=== PATIENT | male | born 1990 | race African-American/Black ===

== ENCOUNTER 2019-04-05 18:56 | Emergency (ER) | payer MEDICAID ==
[~2019-04-05] VITALS: Ht 177.8 cm; Wt 93.4 kg
[2019-04-06 01:18] VITALS: BP 135/97
[2019-04-06] MEDS ORDERED: LIDOCAINE 1% HCL (LOCAL ANESTH.) INJ 20ML MDV IJ ONE (01:30)
[2019-04-06] MEDS ORDERED: BACITRACIN TOP OINT 1 UD PKG TOP ONE (01:30)
[2019-04-06] MEDS ORDERED: TETANUS-DIPTH-ACEL PERTUSSIS 0.5ML SYRG IM ONE (03:00)
[2019-04-06] MEDS ORDERED: cefTRIAXone SOD 1,000 MG VL IM ONE (03:00)
[2019-04-06] MEDS ORDERED: ACETAMINOPHEN/CODEINE#3 (300/30mg) TAB PO ONE (03:15)
== END 2019-04-06 03:30 | disposition home or self-care (01) ==
LOC: ER 19:00
DX: S61.411A Laceration without foreign body of right hand, initial encounter (principal); S71.132A Puncture wound without foreign body, left thigh, initial encounter; K21.9 Gastro-esophageal reflux disease without esophagitis; W54.0XXA Bitten by dog, initial encounter; Y93.89 Activity, other specified; Y92.89 Other specified places as the place of occurrence of the external cause; Y99.8 Other external cause status
CPT/HCPCS: 12002; 73130; 90471; 90715; 96372; 99284; J0696; J2001

== ENCOUNTER 2019-04-12 17:37 | Emergency (ER) | payer MEDICAID ==
[~2019-04-12] VITALS: Ht 180.3 cm; Wt 93.9 kg
[2019-04-12 17:45] VITALS: BP 139/82
== END 2019-04-12 23:26 | disposition home or self-care (01) ==
LOC: ER 17:37
DX: S61.411D Laceration without foreign body of right hand, subsequent encounter (principal); K21.9 Gastro-esophageal reflux disease without esophagitis; W54.0XXD Bitten by dog, subsequent encounter

== ENCOUNTER 2019-04-27 23:34 | Inpatient (IN) | payer MEDICAID ==
[~2019-04-27] VITALS: Ht 180.3 cm; Wt 92.7 kg
[2019-04-28 00:10] LABS: Urine Bacteria NONE SEEN /hpf (None Seen); Urine Blood TRACE /uL (Negative); Urine Mucus FEW (None Seen); Urine WBC 3 /hpf (0 - 3)
[2019-04-28 00:17] LABS: Hematocrit 48.6 % (41.0-53.0); Hemoglobin 16.9 g/dL (13.5-17.5); Mean Corpuscular Hemoglobin 30.5 pg (28.0-32.0); Mean Corpuscular Hgb Conc. 34.8 g/dL (32.0-36.0); Mean Corpuscular Volume 87.8 fL (80.0-100.0); Platelet Count (auto) 307 10^3/uL (140-450); Red Blood Cells 5.54 10^6/uL (4.5-5.90); Red Cell Distribution Width 13.1 % (11.8-14.3); White Blood Cell 9.1 10^3/uL (4.4-10.8)
[2019-04-28 00:20] LABS: Basophils % (manual) 0 (0.0-2.0); Blast Cells 0; Metamyelocytes % 0; Myelocytes % 0; Promyelocytes % 0; Reactive Lymphocytes 0
[2019-04-28 00:36] LABS: Albumin 3.6 g/dL (3.4-5.0); BUN/Creatinine Ratio 8.3
[2019-04-28 00:44] LABS: Bilirubin, Total 0.3 mg/dL (0.2-1.0); Total Protein 8.1 g/dL (6.4-8.2)
[2019-04-28 00:46] LABS: Band Neutrophils % (manual) 8; Eosinophils % (manual) 4 (0-7); Lymphocytes % (manual) 31 (10.0-50.0); Monocytes % (manual) 15 (0-12)
[2019-04-28] MEDS ORDERED: SODIUM CHLORIDE 0.9% 1,000 ML IV ONE ×3 (04:32→04:49)
[2019-04-28] MEDS ORDERED: KETOROLAC TROMETH 30 MG/ML 1ML VIAL IV ONE (04:45)
[2019-04-28] MEDS ORDERED: cefTRIAXone 1GM/50ML D5W 50 ML IV ONE (05:00)
[2019-04-28] MEDS ORDERED: metroNIDAZOLE 500MG/100ML 100 ML IV ONE (05:00)
[2019-04-28] MEDS ORDERED: ACETAMINOPHEN 325 MG TAB PO ONE (06:15)
[2019-04-28] MEDS ORDERED: ACETAMINOPHEN 325 MG TAB PO PRN (06:30)
[2019-04-28] MEDS ORDERED: ONDANSETRON HCL 4 MG/2 ML VIAL IV PRN (06:30)
[2019-04-28] MEDS ORDERED: MORPHINE SULFATE 4 MG/ML SYR/VIAL IV PRN (06:30)
[2019-04-28] MEDS ORDERED: TEMAZEPAM 15 MG CAP PO PRN (06:30)
[2019-04-28] MEDS: HYDROcodone-ACET 5/325MG TAB PO PRN ×2 (08:38→15:34)
[2019-04-28] MEDS: FAMOTIDINE 20 MG TAB PO SCH ×2 (10:11→21:10)
--- NOTE | 2019-04-28 10:30 | NUR ---
MS admit from ER MARQUIS PHIL admitted to tele/MS after SBAR received. Patient oriented to DANIEL DICKERSON, primary RN, unit, room, bed, and unit policies regarding patient care and visiting hours. Patient weighed by bed scale and encouraged to call if they need something. All questions and concerns addressed, patient verbalized understanding.
[2019-04-28 10:53] VITALS: BP 128/88
[2019-04-28 11:00] VITALS: BP 128/88
[2019-04-28 12:00] VITALS: BP_SYST 102; BP_SYST 126; BP_DIAS 67; BP_DIAS 70
[2019-04-28] MEDS: metroNIDAZOLE 500MG/100ML 100 ML IV SCH ×2 (14:11→21:10)
[2019-04-28 16:55] VITALS: BP 128/78
--- NOTE | 2019-04-28 19:30 | NUR ---
ASSUMED CARE, PT. AWAKE, RELATIVE AT BEDSIDE, NO C/O PAIN, NO SOB.
[2019-04-28 22:00] VITALS: BP 124/78
[2019-04-29] MEDS: HYDROcodone-ACET 5/325MG TAB PO PRN ×3 (01:17→21:54)
[2019-04-29 05:00] VITALS: BP 136/82
[2019-04-29] MEDS: metroNIDAZOLE 500MG/100ML 100 ML IV SCH ×2 (05:26→13:42)
[2019-04-29 06:47] LABS: BUN/Creatinine Ratio 5.4; Calcium 8.7 mg/dL (8.5-10.1); Potassium 3.7 mmol/L (3.5-5.1)
[2019-04-29 07:23] LABS: Hematocrit 45.6 % (41.0-53.0); Hemoglobin 15.7 g/dL (13.5-17.5); Mean Corpuscular Hemoglobin 30.3 pg (28.0-32.0); Mean Corpuscular Hgb Conc. 34.5 g/dL (32.0-36.0); Mean Corpuscular Volume 87.7 fL (80.0-100.0); Platelet Count (auto) 295 10^3/uL (140-450); Red Cell Distribution Width 12.9 % (11.8-14.3); White Blood Cell 7.3 10^3/uL (4.4-10.8)
--- NOTE | 2019-04-29 07:30 | NUR ---
Opening Shift Note Assumed care of patient, awake and alert. No S/S of distress/SOB or pain. Instructed on POC and to call for assist PRN, will continue to monitor for changes Q1hr and PRN.
[2019-04-29 07:31] LABS: Band Neutrophils % (manual) 0; Basophils % (manual) 0 (0.0-2.0); Blast Cells 0; Metamyelocytes % 0; Myelocytes % 0; Promyelocytes % 0; Reactive Lymphocytes 0
[2019-04-29 08:00] VITALS: BP 143/98
[2019-04-29] MEDS ORDERED: cefTRIAXone 1GM/50ML D5W 50 ML IV SCH (09:00)
[2019-04-29] MEDS: FAMOTIDINE 20 MG TAB PO SCH (09:13)
[2019-04-29 09:18] LABS: Eosinophils % (manual) 8 (0-7); Lymphocytes % (manual) 27 (10.0-50.0); Monocytes % (manual) 26 (0-12)
[2019-04-29 12:00] VITALS: BP 117/78
--- NOTE | 2019-04-29 14:58 | NUR ---
Received a call from LAB regarding c-diff positive, Dr. Tito christianson.
--- NOTE | 2019-04-29 16:00 | NUR ---
Dr. Ash at bedside discuss with patient and made aware of c-diff positive, received new orders, noted and carried it out.
--- NOTE | 2019-04-29 16:05 | NUR ---
Per Dr. Ash patient can be d/c from GI perspective.
[2019-04-29 16:56] VITALS: BP 133/90
[2019-04-29] MEDS: VANCOMYCIN HCL 125MG/5ML ORAL SOL PO SCH ×2 (17:51→21:30)
--- NOTE | 2019-04-29 19:25 | NUR ---
assumed care, pt. awake, no c/o pain, no sob.
[2019-04-29] MEDS: metroNIDAZOLE 500 MG TAB PO SCH (21:15)
[2019-04-29 21:30] VITALS: BP 126/84
[2019-04-30] MEDS: HYDROcodone-ACET 5/325MG TAB PO PRN ×2 (03:18→07:29)
[2019-04-30] MEDS: VANCOMYCIN HCL 125MG/5ML ORAL SOL PO SCH ×2 (05:17→11:47)
[2019-04-30] MEDS: metroNIDAZOLE 500 MG TAB PO SCH ×2 (05:17→14:01)
[2019-04-30 05:54] VITALS: BP 127/61
--- NOTE | 2019-04-30 07:30 | NUR ---
Opening Shift Note Assumed care of patient, awake and alert, oriented x4 and verbally responsive. Respiratory even and unlabored. No S/S of distress/SOB or pain. Skin is warm and dry to touch. Instructed on POC and to call for assist PRN, will continue to monitor for changes Q1hr and PRN.
[2019-04-30 09:00] VITALS: BP 117/71
[2019-04-30] MEDS ORDERED: VANC125PO PO (10:16)
[2019-04-30 11:36] VITALS: BP 134/92
[2019-04-30 13:00] VITALS: BP 134/92
--- NOTE | 2019-04-30 15:09 | NUR ---
Discharge instructions given as ordered. Encourage to follow up with PMD (Follow up with PCP in 1-[address] chris Pena on SaturdayMay 04 at 1.15 PM #[phone] Address : [address] [place] [id number] Follow up with Dr. MARTINEZ () in 1-2 weeks Address : [address] [place] [address] [address], [place], [address] #[phone] Ext : [phone]) as instructed. All questions and concerns addressed. Patient verbalized understanding. Medication reconciliation form completed and copy given to patient. IV removed with catheter intact, pressure dressing applied. Patient taken to vehicle via wheelchair with all personal belongings, accompanied by staff and family member. No distress noted at time of departure.
== END 2019-04-30 15:10 | disposition home or self-care (01) | DRG 248 ==
LOC: ER 23:37 → OVERFLOW 23:38 → EAST 04-28 10:24
PROVIDERS: ADMIT Nurse Practitioner; ATTEND Internal Medicine Nephrology
DX: A04.72 Enterocolitis due to Clostridium difficile, not specified as recurrent (principal); K21.9 Gastro-esophageal reflux disease without esophagitis; R50.9 Fever, unspecified; M54.5 Low back pain
CPT/HCPCS: 36415; 74176; 80048; 80053; 81001; 82150; 83605; 83615; 83690; 84484; 85007; 85027; 87045; 87493; 87899; G0378; J0696; J1885; J3490

== ENCOUNTER 2021-12-22 11:51 | Emergency (ER) | payer MEDICAID ==
[~2021-12-22] VITALS: Ht 182.9 cm; Wt 97.5 kg
[~2021-12-22 11:51] MED LIST: VANC125PO PO
[2021-12-22 12:05] VITALS: BP 139/93
[2021-12-22] MEDS ORDERED: DOCU-94 PO (12:48)
[2021-12-22] MEDS ORDERED: HYDR-5192 EX (12:48)
== END 2021-12-22 13:07 | disposition home or self-care (01) ==
LOC: ER 11:51
DX: K60.2 Anal fissure, unspecified (principal); K21.9 Gastro-esophageal reflux disease without esophagitis; Z79.2 Long term (current) use of antibiotics; Z79.899 Other long term (current) drug therapy

== ENCOUNTER 2022-01-02 22:08 | Emergency (ER) | payer MEDICAID ==
[~2022-01-02] VITALS: Ht 182.9 cm; Wt 92.5 kg
[~2022-01-02 22:08] MED LIST changes: +DOCU-94 PO; +HYDR-5192 EX
[2022-01-02 23:16] LABS: Hematocrit 43.2 % (41.0-53.0); Hemoglobin 15.3 g/dL (13.5-17.5); Mean Corpuscular Hemoglobin 30.3 pg (28.0-32.0); Mean Corpuscular Hgb Conc. 35.5 g/dL (32.0-36.0); Mean Corpuscular Volume 85.5 fL (80.0-100.0); Red Blood Cells 5.05 10^6/uL (4.5-5.90); Red Cell Distribution Width 13.3 % (11.8-14.3); White Blood Cell 12.8 10^3/uL (4.4-10.8)
[2022-01-02 23:37] LABS: Basophils % (manual) 0 (0.0-2.0); Blast Cells 0; Eosinophils % (manual) 0 (0-7); Promyelocytes % 0; Reactive Lymphocytes 0
[2022-01-02 23:39] LABS: Albumin 2.7 g/dL (3.4-5.0); BUN/Creatinine Ratio 12.4; Calcium 8.3 mg/dL (8.5-10.1); Potassium 4.1 mmol/L (3.5-5.1)
[2022-01-02 23:40] LABS: Bilirubin, Total 0.4 mg/dL (0.2-1.0); Total Protein 6.6 g/dL (6.4-8.2)
[2022-01-03] MEDS ORDERED: SODIUM CHLORIDE 0.9% 1,000 ML IV ONE ×2
[2022-01-03 00:01] LABS: Metamyelocytes % 1; Myelocytes % 2
[2022-01-03 00:02] LABS: Band Neutrophils % (manual) 27; Lymphocytes % (manual) 16 (10.0-50.0); Monocytes % (manual) 18 (0-12)
[2022-01-03] MEDS ORDERED: IOHEXOL 350 MG/ML 100ML IJ ONE (01:37)
[2022-01-03] MEDS ORDERED: MORPHINE SULFATE 4 MG/ML SYR/VIAL IV ONE (02:00)
[2022-01-03 02:43] VITALS: BP 130/81
== END 2022-01-03 03:00 | disposition home or self-care (01) ==
LOC: ER 22:10
DX: R07.89 Other chest pain (principal); E86.0 Dehydration; R19.7 Diarrhea, unspecified; K21.9 Gastro-esophageal reflux disease without esophagitis
CPT/HCPCS: 36415; 71045; 71275; 80053; 84484; 85007; 85027; 93005; 96361; 96374; 99285; J2270; J7030; Q9967